=== PATIENT | male | born 1995 | race Caucasian/White ===

== ENCOUNTER 2018-05-10 21:24 | Emergency (ER) | payer SELFPAY ==
--- NOTE | 2018-05-10 22:15 | ED Physician Chart ---
ED Chief Complaint/HPI - Patient Information Date Seen:: 05/10/18 Time Seen:: 22:00 Chief Complaint:: myalgia History of Present Illness:: Patient developed diffuse myalgia 4 days ago. Next day he developed chills, subjective fever and watery diarrhea. For the last 4 days patient has had watery diarrhea about 4 times a day. Patient has felt nauseated but has had no vomiting. He has had mild nasal stuffiness also. Patient denies myalgia at present. Allergies:: Allergies Allergy/AdvReac Type Severity Reaction Status Date / Time No Known Allergies Allergy Verified 05/10/18 21:40 Vitals:: Vital Signs - 8 hr 05/10/18 21:30 Temp 98.1 F HR 64 RR 18 BP 139/77 O2 Sat % 96 Historian:: Patient ED Review of Systems - Review of Systems General/Constitutional: Fever, Chills, No weight loss, No weakness, No diaphoresis, No edema, No loss of appetite Skin: No skin lesions, No rash, No bruising Head: No headache, No light-headedness Eyes: No loss of vision, No pain, No diplopia ENT: No earache, Nasal drainage, No sore throat, No tinnitus Neck: No neck pain, No swelling, No thyromegaly, No stiffness, No mass noted Cardio Vascular: No chest pain, No palpitations, No PND, No orthopnea, No edema Pulmonary: No SOB, No cough, No sputum, No wheezing GI: Nausea, No vomiting, Diarrhea, No pain, No melena, No hematochezia, No constipation, No hematemesis G/U: No dysuria, No frequency, No hematuria Musculoskeletal: No bone or joint pain, No back pain, No muscle pain Endocrine: No polyuria, No polydipsia Psychiatric: No prior psych history, No depression, No anxiety, No suicidal ideation Hematopoietic: No bruising, No lymphadenopathy Allergic/Immuno: No urticaria, No angioedema Neurological: No syncope, No focal symptoms, No weakness, No paresthesia, No headache, No seizure, No dizziness, No confusion, No vertigo ED Past Medical History - Past Medical History Past Medical History: Other (anxiety) Family History: HTN, Other (asthma) Social History: Non Smoker, No Alcohol Surgical History: None Psychiatricy History: None Medication: None Family Medical History - Family Member Mother History Unknown: Yes ED Physical Exam - Physical Examination General/Constitutional: Awake, Well-developed, well-nourished, Alert, No distress, GCS 15, Non-toxic appearing, Ambulatory Head: Atraumatic Eyes: Lids, conjuctiva normal, PERRL, EOMI Skin: Nl inspection, No rash, No skin lesions, No ecchymosis, Well hydrated, No lymphadenopathy ENMT: External ears, nose nl, Nasal exam nl, Lips, teeth, gums nl Other ENMT comments:: left cerumenosis; right tympanic membrane clear Neck: Nontender, Full ROM w/o pain, No JVD, No nuchal rigidity, No bruit, No mass, No stridor Respiratory: Nl effort/Exclusion, Clear to Auscultation, No Wheeze/Rhonchi/Rales Cardio Vascular: RRR, No murmur, gallop, rubs, NL S1 S2 GI: No tenderness/rebounding/guarding, No organomegaly, No hernia, Normal BS's, Nondistended, No mass/bruits, No McBurney tenderness : No CVA tenderness Extremities: No tenderness or effusion, Full ROM, normal strength in all extremities, No edema, Normal digits & nails Neuro/Psych: Alert/oriented, DTR's symmetric, Normal sensory exam, Normal motor strength, Judgement/insight normal, Mood normal, Normal gait, No focal deficits Misc: Normal back, No paraspinal tenderness ED Assessment - Assessment General Assessment: Patient mentioned his left ear felt clogged. I gave the patient instructions on how to remove the cerumen from his left ear. Also told the patient that he should drink lots a half Gatorade half water and eat extra bananas for the potassium he loses with diarrhea. ED Septic Shock - . Is Septic Shock (SBP<90, OR Lactate>4 mmol\L) present?: No - <6hrs of presentation: Vital Signs: Vital Signs - 8 hr 05/10/18 21:30 Temp 98.1 F HR 64 RR 18 BP 139/77 O2 Sat % 96 ED Reassessment (Disposition) - Reassessment Reassessment Condition:: Unchanged - Diagnosis Diagnosis:: Viral enteritis; left ceruminosis - Aftercare/Follow up Instructions Aftercare/Follow-Up Instructions:: Refer to Discharge Instructions - Patient Disposition Discharge/Transfer:: Home Condition at Disposition:: Stable, Unchanged
== END 2018-05-10 22:20 ==
LOC: ER 21:24
DX: A08.4 Viral intestinal infection, unspecified (principal); H61.22 Impacted cerumen, left ear
CPT/HCPCS: Z7502

== ENCOUNTER 2018-06-29 18:22 | Emergency (ER) | payer MEDICAID ==
--- NOTE | 2018-06-29 19:08 | ED Physician Chart ---
ED Chief Complaint/HPI - Patient Information Date Seen:: 06/29/18 Time Seen:: 18:55 Chief Complaint:: headache, h/o hypoglycemia History of Present Illness:: headache, h/o hypoglycemia Allergies:: Allergies Allergy/AdvReac Type Severity Reaction Status Date / Time No Known Allergies Allergy Verified 05/10/18 21:40 Vitals:: Vital Signs - 8 hr 06/29/18 18:52 Temp 97.4 F HR 69 RR 16 BP 140/91 O2 Sat % 98 ED Past Medical History - Past Medical History Obtainable: Yes Past Medical History: No significant medical hx Family Medical History - Family Member Mother History Unknown: Yes ED Physical Exam - Physical Examination General/Constitutional: Awake, Well-developed, well-nourished, Alert, No distress, GCS 15, Non-toxic appearing, Ambulatory Head: Atraumatic Eyes: Lids, conjuctiva normal, PERRL, EOMI Skin: Nl inspection, No rash, No skin lesions, No ecchymosis, Well hydrated, No lymphadenopathy ENMT: External ears, nose nl, Nasal exam nl, Lips, teeth, gums nl Neck: Nontender, Full ROM w/o pain, No JVD, No nuchal rigidity, No bruit, No mass, No stridor Respiratory: Nl effort/Exclusion, Clear to Auscultation, No Wheeze/Rhonchi/Rales Cardio Vascular: RRR, No murmur, gallop, rubs, NL S1 S2 GI: No tenderness/rebounding/guarding, No organomegaly, No hernia, Normal BS's, Nondistended, No mass/bruits, No McBurney tenderness : No CVA tenderness Extremities: No tenderness or effusion, Full ROM, normal strength in all extremities, No edema, Normal digits & nails Misc: Normal back, No paraspinal tenderness ED Assessment - Assessment General Assessment: Tension headache. Assessment/Comments:: offered a Toradol injection and he refused. ED Septic Shock - . Is Septic Shock (SBP<90, OR Lactate>4 mmol\L) present?: No - <6hrs of presentation: Vital Signs: Vital Signs - 8 hr 06/29/18 18:52 Temp 97.4 F HR 69 RR 16 BP 140/91 O2 Sat % 98 ED Reassessment (Disposition) - Reassessment Reassessment Condition:: Unchanged - Diagnosis Diagnosis:: Tension headache. H/o hypoglycemic episodes. - Aftercare/Follow up Instructions Aftercare/Follow-Up Instructions:: Refer to Discharge Instructions Notes:: please make sure to eat regularly and not to go too long without eating food. - Patient Disposition Discharge/Transfer:: Home
== END 2018-06-29 19:30 | disposition home or self-care (01) ==
LOC: ER 18:22
DX: G44.209 Tension-type headache, unspecified, not intractable (principal)
CPT/HCPCS: Z7502